=== PATIENT | female | born 1975 | race Caucasian/White ===

== ENCOUNTER 2016-11-14 14:24 | Emergency (ER) | payer OTHER ==
[~2016-11-14] VITALS: Ht 160 cm; Wt 65.8 kg
[2016-11-14 14:24] VITALS: BP 149/94
[2016-11-14] MEDS ORDERED: LISI-538 PO (14:40)
[2016-11-14] MEDS ORDERED: ADVI200T PO (14:40)
[2016-11-14] MEDS ORDERED: METOCLOPRAMIDE 10 MG TAB PO ONE (17:00)
[2016-11-14] MEDS ORDERED: NS 1,000 ML IV ONE (17:00)
[2016-11-14] MEDS ORDERED: dexameTHASONE 20 MG/5 ML VIAL (J1100) IV ONE (17:00)
[2016-11-14 17:06] LABS: BASO % 0.4 % (0.0-1.0); EOS # 0.3 K/mm3 (0.0-0.50); EOS % 3.9 % (0.0-3.0); LARGE UNSTAINED CELL # 0.1 K/mm3 (0.0-0.4); LARGE UNSTAINED CELL % 1.5 % (0.0-4.0); LYMPH # 3.3 K/mm3 (1.5-4.5); LYMPH % 38.2 % (24.0-44.0); MEAN CORPUSCULAR HEMOGLOBIN 32.2 pg (27.0-33.0); MEAN CORPUSCULAR HGB CONC 33.8 g/dl (32.0-36.5); MEAN CORPUSCULAR VOLUME 95.2 fl (80.0-96.0); MONO # 0.3 K/mm3 (0.0-0.8); MONO % 3.4 % (0.0-5.0); NEUTROPHILS # 4.6 K/mm3 (1.8-7.7); NEUTROPHILS % 52.6 % (36.0-66.0); PLATELET COUNT, AUTOMATED 285 k/mm3 (150-450); RED CELL DISTRIBUTION WIDTH 12.5 % (11.5-14.5); WHITE BLOOD COUNT 8.7 K/mm3 (4.0-10.0)
[2016-11-14] MEDS ORDERED: METOCLOPRAMIDE INJ 10MG/2ML VIAL (J2765) IV ONE (17:15)
--- NOTE | 2016-11-14 17:18 | REP ---
Clinical: Headache . Comparison: None . Findings: The ventricles, sulci, and cisterns are normal in position and appearance. Matias-white differentiation is maintained. No acute intracranial hemorrhage, mass/mass effect, pathology or trauma/injury. No evidence for acute infarction. No extra-axial fluid collection. Calvarium is intact. Paranasal sinuses and mastoid air cells are clear. Impression: Normal noncontrast head CT. No evidence for acute intracranial pathology or trauma/injury. Signed by Darren Peralta MD 11/14/2016 05:10 P
[2016-11-14 17:35] LABS: ANION GAP 6 MEQ/L (8-16); BLOOD UREA NITROGEN 12 MG/DL (7-18); CALCIUM LEVEL 8.9 MG/DL (8.5-10.1); CARBON DIOXIDE LEVEL 26 MEQ/L (21-32); CHLORIDE LEVEL 106 MEQ/L (98-107); CREATININE FOR GFR 0.78 MG/DL (0.55-1.02); GLOMERULAR FILTRATION RATE > 60.0 (>60); GLUCOSE, FASTING 92 MG/DL (70-105); POTASSIUM SERUM 4.2 MEQ/L (3.5-5.1); SODIUM LEVEL 138 MEQ/L (136-145)
[2016-11-14 17:41] LABS: ERYTHROCYTE SEDIMENTATION RATE 25 mm/hr (0-20)
[2016-11-14] MEDS ORDERED: KETOROLAC 30 MG/ML VIAL (J1885) IV ONE (18:00)
== END 2016-11-14 19:13 | disposition home or self-care (01) ==
LOC: M ED 15:43
DX: R51 Headache (principal); I10 Essential (primary) hypertension; Z79.899 Other long term (current) drug therapy
CPT/HCPCS: 70450; 80048; 81025; 85025; 85652; 86140; 96374; 96375; 99283; J1100; J1885; J2765

== ENCOUNTER 2016-11-29 12:52 | Emergency (ER) | payer OTHER ==
[~2016-11-29] VITALS: Ht 160 cm; Wt 65.8 kg
[~2016-11-29 12:52] MED LIST: ADVI200T PO; LISI-538 PO
[2016-11-29] MEDS ORDERED: ATIV1TAB10 PO (13:01)
[2016-11-29] MEDS ORDERED: HYDROmorphone HCL 1 MG/ML SYRINGE (J1170) IV STA (13:16)
[2016-11-29] MEDS ORDERED: NS 1,000 ML IV ONE (13:30)
[2016-11-29] MEDS ORDERED: HYDROmorphone HCL 1 MG/ML SYRINGE (J1170) IV ONE (13:30)
[2016-11-29] MEDS ORDERED: ONDANSETRON 4MG/2ML VIAL (J2405) IV ONE (13:30)
[2016-11-29 14:44] LABS: BASO % 0.6 % (0.0-1.0); EOS # 0.2 K/mm3 (0.0-0.50); EOS % 3.2 % (0.0-3.0); LARGE UNSTAINED CELL # 0.1 K/mm3 (0.0-0.4); LARGE UNSTAINED CELL % 1.8 % (0.0-4.0); LYMPH % 36.7 % (24.0-44.0); MEAN CORPUSCULAR HEMOGLOBIN 32.2 pg (27.0-33.0); MEAN CORPUSCULAR HGB CONC 33.8 g/dl (32.0-36.5); MEAN CORPUSCULAR VOLUME 95.3 fl (80.0-96.0); MONO # 0.4 K/mm3 (0.0-0.8); MONO % 4.6 % (0.0-5.0); NEUTROPHILS # 4.2 K/mm3 (1.8-7.7); NEUTROPHILS % 53.2 % (36.0-66.0); PLATELET COUNT, AUTOMATED 231 k/mm3 (150-450); RED CELL DISTRIBUTION WIDTH 12.9 % (11.5-14.5); WHITE BLOOD COUNT 7.9 K/mm3 (4.0-10.0)
[2016-11-29 14:51] LABS: CONTROL LINE HCG INT CTR LINE PRESENT
[2016-11-29 14:58] LABS: ALBUMIN/GLOBULIN RATIO 1.05 (1.00-1.93); ALKALINE PHOSPHATASE 85 U/L (45-117); ALT/SGPT 18 U/L (12-78); AMYLASE 44 U/L (25-115); ANION GAP 7 MEQ/L (8-16); AST/SGOT 19 U/L (15-37); BILIRUBIN,DIRECT 0.1 MG/DL (0.0-0.2); BILIRUBIN,TOTAL 0.5 MG/DL (0.2-1.0); BLOOD UREA NITROGEN 11 MG/DL (7-18); CALCIUM LEVEL 9.4 MG/DL (8.5-10.1); CARBON DIOXIDE LEVEL 23 MEQ/L (21-32); CHLORIDE LEVEL 110 MEQ/L (98-107); CREATININE FOR GFR 0.73 MG/DL (0.55-1.02); GLOMERULAR FILTRATION RATE > 60.0 (>60); GLUCOSE, FASTING 125 MG/DL (70-105); POTASSIUM SERUM 3.6 MEQ/L (3.5-5.1); SODIUM LEVEL 140 MEQ/L (136-145); TOTAL PROTEIN 7.8 GM/DL (6.4-8.2)
[2016-11-29] MEDS ORDERED: ISOVUE-370 76% 100ML VIAL (Q9967) As Ordered ONE (15:20)
[2016-11-29] MEDS ORDERED: FAMOTIDINE INJ 20MG/2ML VIAL (S0028) IVP ONE (15:30)
[2016-11-29] MEDS ORDERED: GI COCKTAIL 50ML BTL(HYOSCYAMINE/MAALOX/LIDOCAINE VISCOUS)(1:3:1) PO ONE (15:30)
--- NOTE | 2016-11-29 16:29 | REP ---
CT of the abdomen and pelvis with IV contrast. No bowel contrast is utilized. There are no comparisons. There are small curvilinear densities in the visualized lower lung whittaker compatible with parenchymal scarring. The hepatic parenchyma is homogeneous. The gallbladder is unremarkable. The pancreas and spleen are unremarkable. The adrenals and kidneys are unremarkable. The abdominal aorta is unremarkable. There is a small fat-containing ventral hernia just above the umbilicus. I suspect there is a second fat containing ventral hernia just above this. There is no bowel distension. Pelvis: The the patient reportedly has an appendectomy. The bladder is markedly distended. The uterus and adnexa are unremarkable. There is no ascites or adenopathy. Impression: The bladder is markedly distended. The patient reportedly has had an appendectomy. Otherwise, essentially negative CT of the abdomen and pelvis. Signed by Deven Gibson MD 11/29/2016 04:20 P
[2016-11-29] MEDS ORDERED: PANTOPRAZOLE 40MG INJ (PROTONIX) (C9113) IV ONE (16:45)
[2016-11-29] MEDS ORDERED: SUCR1SS PO (17:26)
[2016-11-29] MEDS ORDERED: ZOFR4TAB3 PO (17:27)
[2016-11-29] MEDS ORDERED: PROT1TAB2 PO (17:27)
[2016-11-29] MEDS ORDERED: PERC5TAB6 PO (17:27)
[2016-11-29] MEDS ORDERED: SUCRALFATE SUSP 1GM/10ML UD PO ONE (17:30)
[2016-11-29 17:38] VITALS: BP 155/87
== END 2016-11-29 17:58 | disposition home or self-care (01) ==
LOC: M ED 13:42
DX: K27.9 Peptic ulcer, site unspecified, unspecified as acute or chronic, without hemorrhage or perforation (principal); R10.13 Epigastric pain; F41.9 Anxiety disorder, unspecified; I10 Essential (primary) hypertension; F17.210 Nicotine dependence, cigarettes, uncomplicated
CPT/HCPCS: 36415; 74177; 80048; 80076; 82150; 83605; 83690; 84703; 85025; 96361; 96374; 96375; 96376; 99283; C9113; J1170; J2405; Q9967